=== PATIENT | female | born 1980 | race Caucasian/White ===

== ENCOUNTER → 2016-05-14 | Outpatient (CLI) | payer BC ==
[~2016-05-14] MED LIST: MTR600X PO; PRENTAB26 PO
== END | disposition home or self-care (01) ==
LOC: C.PAPS 10:43
PROVIDERS: ATTEND Obstetrics & Gynecology
DX: Z01.419 Encounter for gynecological examination (general) (routine) without abnormal findings (principal)

== ENCOUNTER → 2017-03-18 | Day surgery (SDC) | payer BC ==
[2017-02-20 11:41] VITALS: Ht 166.4 cm; Wt 70.9 kg
[~2017-03-18] VITALS: Ht 166.4 cm; Wt 70.9 kg
[~2017-03-18] MED LIST changes: +ATROPINE SULFATE 0.1 MG/ML 5ML SYR IV PRN; +DEXAMETHASONE SOD INJ 4 MG/ML VIAL ONE; +EpHEDrine SULFATE INJ 50 MG/ML AMP IV PRN; +FENTANYL CITRATE INJ 50 MCG/1 ML 2 ML VIAL IV PRN; +FENTANYL CITRATE INJ 50 MCG/1 ML 2 ML VIAL ONE; +FLUMAZENIL 0.1 MG/1 ML 10 ML VIAL IV PRN; +GLYCOPYRROLATE INJ 0.2 MG/ML VIAL ONE; +IBUPROFEN 200 MG TAB ONE; +IBUPROFEN 600 MG TAB PO PRN; +JUICE PLUS PO; +KETOROLAC TROMETHAMINE 30 MG/ML VIAL IV. PRN; +LACTATED RINGER'S 1000ML 1,000 ML IV SCH; +LIDOCAINE HCL 2% 2 ML VIAL (20MG/ML) ONE; +MIDAZOLAM HCL 1 MG/ML 2ML VIAL ONE; +MINO50CA3 PO; -MTR600X PO; +NALOXONE HCL 0.4 MG/1 ML VIAL/CARP IV PRN; +NEOSTIGMINE METHYLSULFATE 5 MG/5 ML SYR ONE; +ONDANSETRON INJ 2 MG/ML 2 ML VIAL IV PRN; +ONDANSETRON INJ 2 MG/ML 2 ML VIAL ONE; +OXYCODONE/ACETAMINOPHEN 5-325 TAB PO PRN; -PRENTAB26 PO; +PROMETHAZINE HCL INJ 12.5 MG in SODIUM CHLORIDE 0.9% 50ML 50 ML IV PRN; +PROPOFOL IV EMULSION 10 MG/ML 20 ML VIAL IV ONE; +ROCURONIUM BROMIDE 10 MG/ML 5 ML VIAL IV ONE; +SODIUM CHLORIDE 0.9% 1000ML 1,000 ML IV SCH
--- NOTE | 2017-03-18 11:54 | History & Physical Bridge - [place] ---
H&P Re-Evaluation Bridge Note: I have examined the patient, reviewed the History & Physical and in the interval since the performance of the History & Physical I have noted the following changes of clinical significance: No changes noted
--- NOTE | 2017-03-18 13:03 | [facility] Post Operative Brief Note ---
Immediate Operative Summary Operative Date Mar 18, 2017. Pre-Operative Diagnosis Encounter for sterilization Post-Operative Diagnosis Same Procedure(s) Performed Laparoscopic Bilateral Tubal Coagulation Surgeon Dr. Hickey [employer] Technology Teacher Surgeon(s) None Estimated Blood Loss 0 Findings normal uterus, tubes and ovaries bilaterally. nl liver edge and appendix. Fluids (cc crystalloids) 900 Specimens None Drains none Anesthesia general Complication(s) None Disposition Recovery Room / PACU
--- NOTE | 2017-03-18 13:06 | Discharge Instructions ---
Discharge Instructions Date of Service Mar 18, 2017. Admission Reason for Admission: Encounter For Contraceptive Planning Discharge Discharge Diagnosis / Problem: s/p surgery Discharge Goals Goal(s): Routine recovery after surgery Activity Recommendations Activity Limitations: as noted below . Instructions / Follow-Up Instructions / Follow-Up ACTIVITY RECOMMENDATIONS: * Rest the first 1-2 days. You should be back to your normal activity levels by day 3. * No heavy lifting for 2 weeks. * No intercourse, tampons or douching for 1-2 weeks. * You may shower the next day. * Do not drive anytime that you are taking narcotic pain medicines. RETURN TO SCHOOL/WORK: * May return to school or work after 1-2 days. DIET: Nausea may occur in the immediate post-operative period. If so, take clear liquids such as tea, bouillon, apple juice until all nausea has subsided, then resume usual diet. MEDICATIONS: Resume previous medications unless instructed otherwise by your surgeon. Ibuprofen 200mg 2-3 tablets every 4-6 hours as needed -- OR -- Aleve 2 tablets every 8-12 hours as needed for post-operative discomfort Medications are over the counter. Tylenol may be used if above medications are contraindicated or not preferred. Medication should be taken with food or milk. Do not take on an empty stomach. SPECIAL CARE INSTRUCTIONS: * Check temperature twice daily for one week. report any elevation over 101 degrees. * You may experience some vagina spotting and/or bleeding. This is normal for 1 -2 weeks and should not be heavier than a normal period. If it is unusual in amount, call your physician. * Post-operative discomfort may consist of a sore throat, a "bloated" feeling and pain in the shoulders. these are normal symptoms, which usually only last for 2-3 days. * Remove band-aids tomorrow and shower. There is no need to replace band-aids unless there is drainage or discomfort. FOLLOW UP VISIT: Call your doctor's office for a post-operative as needed. Current Hospital Diet Patient's current hospital diet: Discharge Diet Recommended Diet: Regular Diet Procedures Procedures Performed: Laparoscopic Bilateral Tubal Coagulation Pending Studies Studies pending at discharge: no Medical Emergencies . Who to Call and When: Medical Emergencies: If at any time you feel your situation is an emergency, please call 911 immediately. . Non-Emergent Contact Non-Emergency issues call your: Medicare Interviewer . . "Provider Documentation" section prepared by Emily Hickey. . VTE Core Measure Inpt VTE Proph given/why not?: Treatment not indicated
--- NOTE | 2017-03-18 13:49 | OPERATIVE REPORT ---
DATE OF OPERATION: 03/18/2017 PREOPERATIVE DIAGNOSIS: Desires sterilization. POSTOPERATIVE DIAGNOSIS: Same. PROCEDURE: Laparoscopic bilateral tubal coagulation. SURGEON: Dr. Emily Hickey. CLAIM REVIEW MEDICAL DIRECTOR: None. IV FLUIDS: 900 mL. ESTIMATED BLOOD LOSS: 0 mL. ANESTHESIA: General. FINDINGS: Normal uterus, tubes and ovaries bilaterally. Normal appendix seen and normal liver edge. INDICATIONS: A 37-year-old 3, para 3, who desires permanent sterilization as her mode of contraception. She is aware of all other options, including male vasectomy and desires to proceed. DESCRIPTION OF PROCEDURE: The patient was taken to the operating room and identified. After adequate general anesthesia was obtained, she was placed in the dorsal lithotomy position and prepped and draped in the usual sterile fashion. The bladder was drained for clear yellow urine. A weighted speculum and an anterior retractor were used to visualize the cervix, which was grasped on its anterior lip with an Allis clamp. An acorn uterine manipulator was gently placed through the cervical os and connected to the Allis clamp to allow for uterine manipulation. The retractors were removed. Attention was then turned to the patient's abdomen, where a 10-mm infraumbilical skin incision was made with a scalpel. The Veress needle was placed intraperitoneally with an opening pressure of 4 mmHg. A CO2 pneumoperitoneum was created. The Veress needle was then removed. The 12-mm optical trocar was then placed under direct visualization into the peritoneal cavity. The patient was placed in steep Trendelenburg. The operative laparoscope was then readied. The bowel was teased away from the planned operative sites. The right fallopian tube was put on stretch using a vaginal manipulator and the tube was identified to its fimbriated end. It was coagulated in a 3-cm segment approximately 2-3 cm from the right cornu using a Kleppinger forceps with an impedance monitor. The left fallopian tube was identified and coagulated in a similar fashion. At this point, the procedure was terminated. Kleppinger forceps as well as the laparoscope was removed. The CO2 was allowed to escape from the patient's abdomen. The patient was returned to flat positioning. The trocar was removed. The fascia was reapproximated with a single interrupted suture of 0 Vicryl followed by the skin closure with 4-0 Vicryl in a subcuticular fashion. Vaginal instruments were removed. The patient was returned to supine position, awoke from anesthesia and transported to recovery room in stable condition. All sponge, lap and needle counts were correct x2. I attest to the content of the Intraoperative Record and any orders documented therein. Any exception s are noted below.
[2017-03-18 14:00] VITALS: TEMP 36.6
--- NOTE | 2017-03-18 14:12 | Anesthesia Progress Nt - [facility] ---
Anesthesia Post Op Note Date & Time Mar 18, 2017 at 14:12 Vital Signs Pain Intensity: 3 Vital Signs Past 12 Hours Date Time Temp Pulse Resp B/P (MAP) Pulse Ox O2 Delivery O2 Flow Rate FiO2 03/18/17 14:00 36.6 57 16 123/71 (88) 100 Room Air 03/18/17 13:54 36.7 54 12 112/68 100 Room Air 03/18/17 13:53 58 03/18/17 13:51 112/68 03/18/17 13:48 53 14 03/18/17 13:48 53 14 100 03/18/17 13:46 125/75 03/18/17 13:43 52 14 03/18/17 13:43 52 14 100 03/18/17 13:41 114/71 03/18/17 13:38 48 17 03/18/17 13:38 48 17 100 03/18/17 13:37 47 13 03/18/17 13:37 47 13 100 03/18/17 13:36 117/63 03/18/17 13:32 47 13 03/18/17 13:32 47 13 100 03/18/17 13:31 113/63 03/18/17 13:27 51 12 100 03/18/17 13:27 51 12 03/18/17 13:26 120/62 03/18/17 13:25 52 16 100 03/18/17 13:25 53 16 03/18/17 13:21 115/66 03/18/17 13:20 63 10 03/18/17 13:20 63 10 100 03/18/17 13:15 77 03/18/17 13:15 77 117/71 100 03/18/17 13:15 37.2 82 12 117/71 100 Diffusion Mask 6 03/18/17 11:12 36.2 90 16 148/91 (110) 100 Room Air Notes Mental Status: alert / awake / arousable, participated in evaluation Pt Amnestic to Procedure: Yes Nausea / Vomiting: adequately controlled Pain: adequately controlled Airway Patency, RR, SpO2: stable & adequate BP & HR: stable & adequate Hydration State: stable & adequate Anesthetic Complications: no major complications apparent
[2017-03-18 14:30] VITALS: BP 117/75; PULSE 55; O2SAT 100
== END | disposition home or self-care (01) ==
LOC: X.SURG 10:48
PROVIDERS: ATTEND Obstetrics & Gynecology
DX: Z30.2 Encounter for sterilization (principal)